=== PATIENT | female | born 1950 | race American Indian/Alaskan Native ===

== ENCOUNTER 2019-07-03 10:57 | Emergency (ER) | payer MEDICARE ==
[2019-07-03] MEDS ORDERED: SODIUM CHLORIDE 0.9% IRR 500 ML BOTTLE IR ONE (11:37)
[2019-07-03] MEDS ORDERED: TETANUS,DIPH,PERTUSS(ACELL) VACCINE 0.5 ML SYRINGE IM ONE (11:37)
[2019-07-03] MEDS ORDERED: NEOMY 3.5 MG/BACIT 400 UNITS/POLY B 5000 UNITS/GM OINT PACKET TP ONE (11:37)
--- NOTE | 2019-07-03 11:37 | Event Note ---
ED Screening Note ED Screening Note: SP GLF DUE TO UNEVEN PAVEMENT CO L KNEE PAIN AND ABRASION HEAD KNOT AND LOW BACK PMH FIBROMYALGIA HX CVA HX ACS HTN RX FLEXERIL ASA LASIX METFORMIN BID LISINOPRIL HCTZ COREG MOTRIN RECENT ADMIT TO [facility] FOR CP This initial assessment/diagnostic orders/clinical plan/treatment(s) is/are subject to change based on patients health status, clinical progression and re- assessment by fellow clinical providers in the ED. Further treatment and workup at subsequent clinical providers discretion. Patient/guardian urged not to elope from the ED as their condition may be serious if not clinically assessed and managed. Initial orders include: RO MEDICAL RELATED CALL NEEDS TDAP WOUND CARE TO LLE
--- NOTE | 2019-07-03 12:36 | XRay Report ---
LEFT KNEE 3 VIEWS INDICATION / CLINICAL INFORMATION: FALL W PAIN COMPARISON: None available. FINDINGS: BONES / JOINT(S): No acute fracture or subluxation. There is mild degenerative change in the left kne e involving the medial compartment. There is mild joint space narrowing and there is marginal osteoph yte formation. SOFT TISSUES: No significant abnormality. ADDITIONAL FINDINGS: None. Signer Name: Jayjay Schreiber MD Signed: 07/03/2019 12:32 PM Workstation Name: [id number]
--- NOTE | 2019-07-03 12:41 | XRay Report ---
LUMBAR SPINE 3 VIEWS INDICATION: Fall with pain COMPARISON: None. FINDINGS: There is no fracture, subluxation, or other acute radiographic abnormality of the lumbar spine. Signer Name: Jayjay Schreiber MD Signed: 07/03/2019 12:37 PM Workstation Name: [id number]
[2019-07-03] MEDS ORDERED: ACETAMINOPHEN 500 MG TAB PO ONE (14:06)
--- NOTE | 2019-07-03 14:13 | Emergency Department Report ---
ED Fall HPI - General Chief Complaint: Fall Stated Complaint: GROUND LEVEL FALL Time Seen by Provider: 07/03/19 11:34 Source: patient, EMS Mode of arrival: Wheelchair - History of Present Illness Initial Comments: This is a 69-year-old female nontoxic, well nourished in appearance, no acute signs of distress presents to the ED with c/o of acute headache, neck pain, lower back pain, and left knee pain s/p trip and fall. Patient stated that she had a trip and fall outside and landed to frontal scalp area and left knee area. Patient denies any LOC. Denies any other injuries or pain. Patient describes headache as diffuse with level of 8 out of 10. Patient denies thunderclap headache. Patient denies any radiation of pain. Patient denies any visual changes. Patient denies worse headache. Patient denies any numbness, tingling, fever, chills, nausea, vomiting, chest pain, shortness of breath, stiff neck. Patient denies facial drooping or one sided weakness. Patient denies any radiation of pain. Patient stated allergies to latex. MD Complaint: fall -: This morning When Fall Occurred: unsure Fall Witnessed: no Place Fall Occurred: street Loss of Consciousness: none Prolonged Down Time?: no Symptoms Prior to Fall: none Location: head, back Location - Extremities: Left: Knee Severity: mild Severity scale (0 -10): 8 Quality: aching Context: tripped/slipped Associated Symptoms: headache, neck pain. denies: numbness, weakness, chest paint, shortness of breath, abdominal pain, hematuria, unable to walk, lightheaded, vertigo, confusion - Related Data Home Medications Medication Instructions Recorded Confirmed Last Taken Aspirin [Adult Aspirin] 81 mg PO DAILY 03/02/19 03/02/19 Unknown Lipitor 20 mg PO QHS 03/02/19 03/02/19 Unknown Lisinopril/Hydrochlorothiazide 1 tab PO QDAY 03/02/19 03/02/19 Unknown [Zestoretic 20-12.5 mg] Metformin HCl [metFORMIN] 1,000 mg PO BID 03/02/19 03/02/19 Unknown carvediloL [Coreg] 25 mg PO BID 03/02/19 03/02/19 Unknown Previous Rx's Medication Instructions Recorded Last Taken Type Furosemide [Lasix] 20 mg PO QDAY #10 tablet 03/02/19 Unknown Rx Acetaminophen/Codeine [Tylenol 1 tab PO Q6H PRN #12 tab 07/03/19 Unknown Rx /Codeine # 3 tab] Naproxen 500 mg PO Q12H PRN #20 tablet 07/03/19 Unknown Rx Allergies Allergy/AdvReac Type Severity Reaction Status Date / Time latex Allergy Rash Verified 03/02/19 10:42 ED Review of Systems ROS: Stated complaint: GROUND LEVEL FALL Other details as noted in HPI Constitutional: denies: chills, fever Eyes: denies: eye pain, eye discharge, vision change ENT: denies: ear pain, throat pain Respiratory: denies: cough, shortness of breath, wheezing Cardiovascular: denies: chest pain, palpitations Endocrine: no symptoms reported Gastrointestinal: denies: abdominal pain, nausea, diarrhea Genitourinary: denies: urgency, dysuria, discharge Musculoskeletal: back pain. denies: joint swelling, arthralgia Skin: denies: rash, lesions Neurological: headache. denies: weakness, paresthesias Psychiatric: denies: anxiety, depression Hematological/Lymphatic: denies: easy bleeding, easy bruising ED Past Medical Hx - Past Medical History Previous Medical History?: Yes Hx Hypertension: Yes Hx Congestive Heart Failure: Yes Hx Diabetes: Yes - Surgical History Past Surgical History?: Yes Hx Coronary Stent: Yes (x1) Additional Surgical History: C section,. hysterectomy - Social History Smoking Status: Never Smoker Substance Use Type: None - Medications Home Medications: Home Medications Medication Instructions Recorded Confirmed Last Taken Type Aspirin [Adult Aspirin] 81 mg PO DAILY 03/02/19 03/02/19 Unknown History Furosemide [Lasix] 20 mg PO QDAY #10 tablet 03/02/19 Unknown Rx Lipitor 20 mg PO QHS 03/02/19 03/02/19 Unknown History Lisinopril/Hydrochlorothiazide 1 tab PO QDAY 03/02/19 03/02/19 Unknown History [Zestoretic 20-12.5 mg] Metformin HCl [metFORMIN] 1,000 mg PO BID 03/02/19 03/02/19 Unknown History carvediloL [Coreg] 25 mg PO BID 03/02/19 03/02/19 Unknown History Acetaminophen/Codeine [Tylenol 1 tab PO Q6H PRN #12 tab 01/23/20 Unknown Rx /Codeine # 3 tab] Naproxen 500 mg PO Q12H PRN #20 tablet 07/03/19 Unknown Rx ED Physical Exam - General Limitations: No Limitations General appearance: alert, in no apparent distress - Expanded Head Exam Expanded Head exam: Present: hematoma 1 - hematoma present - Eye Eye exam: Present: normal appearance, PERRL, EOMI - Neck Neck exam: Present: normal inspection, full ROM. Absent: tenderness, meningismus, lymphadenopathy - Respiratory Respiratory exam: Present: normal lung sounds bilaterally. Absent: respiratory distress, wheezes, rales, rhonchi, stridor, chest wall tenderness, accessory muscle use, decreased breath sounds, prolonged expiratory - Cardiovascular Cardiovascular Exam: Present: regular rate, normal rhythm, normal heart sounds. Absent: bradycardia, tachycardia, irregular rhythm, systolic murmur, diastolic murmur, rubs, gallop - GI/Abdominal GI/Abdominal exam: Present: soft, normal bowel sounds. Absent: distended, tenderness, guarding, rebound, rigid, diminished bowel sounds - Extremities Exam Extremities exam: Present: normal inspection, full ROM, tenderness, normal capillary refill. Absent: joint swelling, calf tenderness - Expanded Lower Extremity Exam Left Hip exam: Present: normal inspection, full ROM. Absent: tenderness, swelling Upper Leg exam: Present: normal inspection, full ROM. Absent: tenderness, swelling Knee exam: Present: normal inspection, full ROM, tenderness, abrasion, full knee extension. Absent: swelling, laceration, ecchymosis, deformity, crepidus, dislocation, erythema, effusion, pain w/ pronation/supination, pain/laxity with valgus, pain/laxity with varus Lower Leg exam: Present: normal inspection, full ROM. Absent: tenderness, swelling Ankle exam: Present: normal inspection, full ROM. Absent: tenderness, swelling Foot/Toe exam: Present: normal inspection, full ROM. Absent: tenderness, swelling Neuro vascular tendon exam: Present: no vascular compromise Gait: Positive: observed and limited by pain - Back Exam Back exam: Present: normal inspection, full ROM, paraspinal tenderness (cervical and lumbar paraspinal). Absent: tenderness, CVA tenderness (R), CVA tenderness (L), muscle spasm, vertebral tenderness, rash noted - Neurological Exam Neurological exam: Present: alert, oriented X3, normal gait - Expanded Neurological Exam Expanded Patient oriented to: Present: person, place, time Cranial nerves: EOM's Intact: Normal, Facial Sensation: Normal Cerebellar function: Finger to Nose: Normal Upper motor neuron: Pronator Drift: Normal, Sensory Extinction: Normal Motor strength exam: RUE: 5, LUE: 5, RLE: 5, LLE: 5 Best Eye Response (Kevin): (4) open spontaneously Best Motor Response (Kevin): (6) obeys commands Best Verbal Response (Kevin): (5) oriented Sisters Total: 15 - Psychiatric Psychiatric exam: Present: normal affect, normal mood - Skin Skin exam: Present: warm, dry, intact, normal color. Absent: rash ED Course Vital Signs 07/03/19 07/03/19 07/03/19 11:31 13:07 17:34 Temperature 98.3 F 97.5 F L Pulse Rate 81 63 Respiratory 16 16 15 Rate Blood Pressure 156/81 Blood Pressure 138/90 [Left] O2 Sat by Pulse 98 100 Oximetry - Reevaluation(s) Reevaluation #1: 07/03/19 14:17 Patient is speaking in full sentences with no signs of distress noted. ED Medical Decision Making - Medical Decision Making This is a 69-year-old female that presents with a fall. Patient is stable and was examined by me. CT scan and x-ray has been obtained and dictated by radi ologist all unremarkable. Patient received Tylenol for pain in the ER which she stated symptoms is improving subsided. Patient also received a tetanus booster in the ER. The wound has been clean and a sterile dressing has been applied. Patient be discharged with Tylenol with codeine. She was instructed not to operate any machinery while taking this as it causes drowsiness. Patient was instructed to Follow-up with a primary care doctor in 3-5 days or if symptoms worsen and continue return to emergency room as soon as possible. At time of discharge, the patient does not seem toxic or ill in appearance. No acute signs of distress noted. Patient agrees to discharge treatment plan of care. No further questions noted by the patient. Critical care attestation.: If time is entered above; I have spent that time in minutes in the direct care of this critically ill patient, excluding procedure time. ED Disposition Clinical Impression: Fall Qualifiers: Encounter type: initial encounter Qualified Code(s): W19.XXXA - Unspecified fall, initial encounter Knee contusion Qualifiers: Encounter type: initial encounter Laterality: right Qualified Code(s): S80.01XA - Contusion of right knee, initial encounter Cervical muscle strain Qualifiers: Encounter type: initial encounter Qualified Code(s): S16.1XXA - Strain of muscle, fascia and tendon at neck level, initial encounter Scalp contusion Qualifiers: Encounter type: initial encounter Qualified Code(s): S00.03XA - Contusion of scalp, initial encounter Low back strain Qualifiers: Encounter type: initial encounter Qualified Code(s): S39.012A - Strain of muscle, fascia and tendon of lower back, initial encounter Disposition: DC- TO HOME OR SELFCARE Is pt being admited?: No Does the pt Need Aspirin: No Condition: Stable Instructions: Muscle Strain (ED), Fall Prevention for Older Adults (ED) Additional Instructions: Follow-up with a primary care doctor in 3-5 days or if symptoms worsen and continue return to emergency room as soon as possible. Prescriptions: Naproxen 500 mg PO Q12H PRN #20 tablet PRN Reason: Pain , Severe (7-10) Acetaminophen/Codeine [Tylenol /Codeine # 3 tab] 1 tab PO Q6H PRN #12 tab PRN Reason: Pain , Severe (7-10) Referrals: JESUS QUINTERO MD [Primary Care Provider] - 3-5 Days NATANAEL CAMACHO MD [Staff Physician] - 3-5 Days [facility] [Outside] - 3-5 Days
--- NOTE | 2019-07-03 16:29 | Cat Scan Report ---
CT cervical spine wo con INDICATION / CLINICAL INFORMATION: 69 years Female; neck pain s/p fall. TECHNIQUE: Axial CT images of the cervical spine were obtained. Sagittal and coronal reformatted images were pr oduced. All CT scans at this location are performed using CT dose reduction for ALARA by means of aut omated exposure control. COMPARISON: None available. FINDINGS: POST-SURGICAL CHANGES: None. ALIGNMENT: Normal cervical lordosis seen without significant scoliosis. VERTEBRAE: No signs of fracture. Vertebral bodies are grossly normal in height throughout. No signif icant facet joint disease or osseous foraminal narrowing appreciated. Mild to moderate facet hypertrophy seen on the left at C2-3 and C4-5. Mild facet hypertrophy seen at other levels. INTRAVERTEBRAL DISCS:Disc spaces are fairly well-maintained throughout without significant canal sten osis. PARASPINAL SOFT TISSUES: No significant abnormality. ADDITIONAL FINDINGS: None. IMPRESSION: 1. No signs of acute bony trauma to the cervical spine. Signer Name: Francisco Servin MD, III Signed: 07/03/2019 4:24 PM Workstation Name: [id number]
--- NOTE | 2019-07-03 16:45 | Cat Scan Report ---
CT head without contrast HISTORY: headache s/p fall. TECHNIQUE: Axial imaging performed from the skull apex through the skull base without the use of con trast. All CT scans at this location are performed using CT dose reduction for ALARA by means of aut omated exposure control. COMPARISON: None FINDINGS: Parenchyma: No acute intracranial hemorrhage or parenchymal abnormality. Fairly symmetric periventri cular hypodensities are noted, likely in keeping with microangiopathy. Ventricles: There is mild diffuse brain atrophy with commensurate ventricular enlargement which is l ikely age appropriate. Soft tissues: There is mild frontal scalp soft tissue swelling/hematoma formation. No laceration. Bones: No acute osseous abnormality. Sinuses: Sinuses and mastoid air cells are clear. IMPRESSION: Small frontal scalp hematoma/swelling. Chronic-appearing changes in the brain. Signer Name: Eze Olsen MD Signed: 07/03/2019 4:40 PM Workstation Name: [id number]
[2019-07-03 17:36] VITALS: BP 138/90
== END 2019-07-03 18:24 | disposition home or self-care (01) ==
LOC: ED 10:57
DX: S16.1XXA Strain of muscle, fascia and tendon at neck level, initial encounter (principal); S39.012A Strain of muscle, fascia and tendon of lower back, initial encounter; S80.01XA Contusion of right knee, initial encounter; S00.03XA Contusion of scalp, initial encounter; I11.0 Hypertensive heart disease with heart failure; I50.9 Heart failure, unspecified; E11.9 Type 2 diabetes mellitus without complications; Z90.710 Acquired absence of both cervix and uterus; Z95.5 Presence of coronary angioplasty implant and graft; Z98.890 Other specified postprocedural states; Z79.899 Other long term (current) drug therapy; Z91.040 Latex allergy status; X58.XXXA Exposure to other specified factors, initial encounter; Y93.89 Activity, other specified; Y92.410 Unspecified street and highway as the place of occurrence of the external cause; Y99.8 Other external cause status
CPT/HCPCS: 70450; 72100; 72125; 90471; 90715; A6250

== ENCOUNTER 2019-07-15 09:42 | Emergency (ER) | payer MEDICARE ==
[2019-07-15 09:52] VITALS: BP 166/92
--- NOTE | 2019-07-15 10:30 | XRay Report ---
CHEST 2 VIEWS INDICATION / CLINICAL INFORMATION: Chest Pain. COMPARISON: None available. FINDINGS: SUPPORT DEVICES: None. HEART / MEDIASTINUM: No significant abnormality. LUNGS / PLEURA: No significant pulmonary or pleural abnormality. No pneumothorax. ADDITIONAL FINDINGS: There is a moderate hiatal hernia. IMPRESSION: 1. No acute findings. 2. Moderate hiatal hernia. Signer Name: Josue Rangel MD Signed: 07/15/2019 10:26 AM Workstation Name: [id number]
[2019-07-15 11:23] LABS: Basophils % (Auto) 0.4 % (0.0-1.8); Eosinophils # (Auto) 0.1 K/mm3 (0.0-0.4); Eosinophils % (Auto) 1.1 % (0.0-4.3); Hematocrit 34.9 % (30.3-42.9); Hemoglobin 11.1 gm/dl (10.1-14.3); Lymphocytes # (Auto) 2.2 K/mm3 (1.2-5.4); Lymphocytes % (Auto) 28.4 % (13.4-35.0); Mean Corpuscular HGB Conc 32 % (30-34); Mean Corpuscular Volume 83 fl (79-97); Monocytes # (Auto) 0.5 K/mm3 (0.0-0.8); Monocytes % (Auto) 6.8 % (0.0-7.3); Platelet Count 266 K/mm3 (140-440); Red Blood Count 4.21 M/mm3 (3.65-5.03); Red Cell Distribution Width 16.4 % (13.2-15.2)
[2019-07-15 11:46] LABS: BUN/Creatinine Ratio 25; Blood Urea Nitrogen 20 mg/dL (7-17); Calcium 9.3 mg/dL (8.4-10.2); Hemolysis Index 13
== END 2019-07-15 23:45 | disposition left against medical advice (07) ==
LOC: ED 09:42
DX: R06.02 Shortness of breath (principal); Z53.21 Procedure and treatment not carried out due to patient leaving prior to being seen by health care provider
CPT/HCPCS: 36415; 71046; 80048; 84484; 85025; 93005; 93010